=== PATIENT | female | born 1975 | race Caucasian/White ===

== ENCOUNTER 2016-10-19 01:24 | Emergency (ER) | payer MEDICAID ==
[~2016-10-19] VITALS: Ht 162.6 cm; Wt 68.5 kg
[~2016-10-19 01:24] MED LIST: ALBU8.5H3 INH; LORA10TA3 PO; PRED20TA PO
[2016-10-19 01:28] VITALS: Ht 162.6 cm; Wt 68.5 kg
[2016-10-19] MEDS ORDERED: LIDOCAINE 1% (MDV) 20 ML INJ SC ONE (03:00)
[2016-10-19] MEDS ORDERED: LANT3I SC (03:08)
[2016-10-19] MEDS ORDERED: SS SC (03:08)
[2016-10-19] MEDS ORDERED: ATOR10TA65 PO (03:08)
[2016-10-19] MEDS ORDERED: METF500T4 PO (03:08)
--- NOTE | 2016-10-19 03:09 | ERD ---
ER Documentation Chief Complaint Date/Time DATE: 10/19/16 TIME: 03:06 Chief Complaint Pain right under the breast x 14 days. dx w/ cyst on breast a year ago HPI 40-year-old female presents here in emergency department for complaints of pain redness and swelling right under the right breast area for 14 days now. Patient' s complain of pain sharp in 6/10 scale, is worse upon touching the area. Patient denies any fever or chills. She denies any nipple discharge or breast pain. Patient denies breast deformity. ROS All systems reviewed and are negative except as per history of present illness. Medications Home Meds Active Scripts Hydrocodone/Acetaminophen ([place] 5-325 Tablet) 1 Each Tablet, 1 TAB PO Q6H Y for SEVERE PAIN LEVEL 7-10, #20 TAB Prov:GEO LEÓN NP 10/19/16 Ibuprofen* (Motrin*) 600 Mg Tab, 600 MG PO Q6H Y for PAIN AND OR ELEVATED TEMP, #30 TAB Prov:GEO LEÓN NP 10/19/16 Cephalexin* (Keflex*) 500 Mg Capsule, 500 MG PO QID for 10 Days, CAP Prov:GEO LEÓN NP 10/19/16 Sulfamethoxazole/Trimethoprim* (Bactrim Ds* Tablet) 1 Each Tablet, 1 TAB PO BID , #20 TAB Prov:GEO LEÓN NP 10/19/16 Albuterol Sulfate* (Proair HFA*) 8.5 Gm Hfa.aer.ad, 2 PUFF INH Q4 for COUGH, #1 INHALER Prov:SHANNA SHEN MD 04/11/15 Loratadine* (Loratadine*) 10 Mg Tablet, 10 MG PO DAILY for NASAL CONGESTION, # 15 TAB Prov:SHANNA SHEN MD 04/11/15 Prednisone* (Prednisone*) 20 Mg Tab, 20 MG PO BID for 4 Days, TAB Prov:SHANNA SHEN MD 04/11/15 Reported Medications Insulin Glargine* (Lantus*) Unknown Strength Soln, SC BID, #1 VIAL 10/19/16 Atorvastatin Calcium (Atorvastatin Calcium) Unknown Strength Tablet, PO QHS, # 30 TAB 10/19/16 Insulin Human Regular (Novolin-R U-100) Unknown Strength Soln, SC AC BREAKFAST, EA 10/19/16 Metformin* (Glucophage*) Unknown Strength Tab, PO BID, #20 TAB 10/19/16 Allergies Allergies: Coded Allergies: No Known Allergy (Unverified , 10/19/16) PMhx/Soc History of Surgery: Yes (c-sec x 1, hysterectomy) Anesthesia Reaction: No Hx Neurological Disorder: No Hx Respiratory Disorders: No Hx Cardiac Disorders: No Hx Psychiatric Problems: No Hx Miscellaneous Medical Probl: Yes (DM) Hx Alcohol Use: No Hx Substance Use: No Hx Tobacco Use: No Smoking Status: Never smoker FmHx Family History: No coronary disease, No diabetes, No other Physical Exam Vitals Vital Signs Date Time Temp Pulse Resp B/P Pulse Ox O2 Delivery O2 Flow Rate FiO2 10/19/16 01:28 98.5 87 18 141/67 100 Physical Exam GENERAL: The patient is well developed and appropriate for usual state of health, in no apparent distress. CHEST: Clear to auscultation bilaterally. There are no rales, wheezes or rhonchi. HEART: Regular rate and rhythm. No murmurs, clicks, rubs or gallops. No S3 or S4. ABDOMEN: Soft, nontender and nondistended. Good bowel sounds. No rebound or guarding. No gross peritonitis. No gross organomegaly or masses. No Britt sign or McBurney point tenderness. BACK: No midline or flank tenderness. EXTREMITIES: Equal pulses bilaterally. There is no peripheral clubbing, cyanosis or edema. No focal swelling or erythema. Full range of motion. Grossly neurovascularly intact. NEURO: Alert and oriented. Cranial nerves 2-12 intact. Motor strength in all 4 extremities with 5/5 strength. Sensation grossly intact. Normal speech and gait. SKIN: Noted 2 cm diameter erythematous indurated fluctuant area on the skin right under the right breast area. There is no apparent rash or petechia. The skin is warm and dry. HEMATOLOGIC AND LYMPHATIC: There is no evidence of excessive bruising or lymphedema. No gross cervical, axillary, or inguinal lymphadenopathy. Results 24 hrs Current Medications Medications (Trade) Dose Ordered Sig/Sharon Route PRN Reason Start Time Stop Time Status Last Admin Dose Admin Lidocaine (Xylocaine 1% (Mdv) 20 ml) 5 ml ONCE ONCE SC 10/19/16 03:00 10/19/16 03:01 DC Acetaminophen/ Hydrocodone Bitart ([place] (10325)) 1 tab ONCE ONCE PO 10/19/16 04:00 10/19/16 04:01 Patient was given medication for pain here in emergency department, after treatment, patient verbalized feeling much better. Patient's pain is improved. Procedures/MDM Procedure Note: After obtaining informed consent, the wound was irrigated with 250 ml of normal saline and cleaned with diluted betadine. Using aseptic technique, 3 ml of 1% lidocaine was injected on the subcutaneous tissue of the abscess where the fluctuant area is at. After the anesthetic, a 2 cm incision was done in the middle of the fluctuant area of the abscess. Pustular discharge was drained from the abscess. The abscess wound was loosely packed with iodoform dressing. After the procedure, dry dressing was applied on the area. Patient tolerated procedure well. Medical Decision making: Patient symptoms is likely consistent with a soft tissue abscess. No symptoms of any breast abscess, no nipple discharge. No symptoms of sepsis at this time. Patient appears well seemed in no acute stable. Perfusion was given for Bactrim, Keflex, ibuprofen, [place], Zofran to follow-up in 2 days for recheck and wound dressing changes, patient was advised to return to emergency department for any worsening symptoms. disposition: Home. Stable. Departure Diagnosis: Primary Impression: Soft tissue abscess Condition: Stable Patient Instructions: Abscess, Incision And Drainage Additional Instructions: recheck 2 days, take antibiotics as prescribed GEO LEÓN NP Oct 19, 2016 03:09
[2016-10-19] MEDS ORDERED: SULF1TAB31 PO (03:57)
[2016-10-19] MEDS ORDERED: IBUP-1542 PO (03:57)
[2016-10-19] MEDS ORDERED: CEPH-443 PO (03:57)
[2016-10-19] MEDS ORDERED: HYDR-906 PO (03:57)
[2016-10-19] MEDS ORDERED: HYDROCODONE/APAP (10/325) TAB PO ONE (04:00)
== END 2016-10-19 04:19 | disposition home or self-care (01) ==
LOC: FTE 01:24
DX: N61.1 Abscess of the breast and nipple (principal); E11.9 Type 2 diabetes mellitus without complications; Z79.4 Long term (current) use of insulin; Z79.84 Long term (current) use of oral hypoglycemic drugs
CPT/HCPCS: 10061; Z7502; Z7610

== ENCOUNTER 2016-10-21 08:23 | Emergency (ER) | payer MEDICAID ==
[~2016-10-21] VITALS: Wt 66.4 kg
[~2016-10-21 08:23] MED LIST changes: +ATOR10TA65 PO; +CEPH-443 PO; +HYDR-906 PO; +IBUP-1542 PO; +LANT3I SC; +METF500T4 PO; +SS SC; +SULF1TAB31 PO
--- NOTE | 2016-10-21 09:10 | ERD ---
ER Documentation Chief Complaint Date/Time DATE: 10/21/16 TIME: 09:08 Chief Complaint wound recheck HPI This is a 40 year-old female presents emergency department today for wound check of an abscess that she had drained a couple of days ago. States she is currently taking her antibiotics. Denies any fevers or chills. ROS All systems reviewed and are negative except as per history of present illness. Medications Home Meds Active Scripts Hydrocodone/Acetaminophen ([place] 5-325 Tablet) 1 Each Tablet, 1 TAB PO Q6H Y for SEVERE PAIN LEVEL 7-10, #20 TAB Prov:GEO LEÓN NP 10/19/16 Ibuprofen* (Motrin*) 600 Mg Tab, 600 MG PO Q6H Y for PAIN AND OR ELEVATED TEMP, #30 TAB Prov:GEO LEÓN [employer] 10/19/16 Cephalexin* (Keflex*) 500 Mg Capsule, 500 MG PO QID for 10 Days, CAP Prov:GEO LEÓN NP 10/19/16 Sulfamethoxazole/Trimethoprim* (Bactrim Ds* Tablet) 1 Each Tablet, 1 TAB PO BID , #20 TAB Prov:GEO LEÓN NP 10/19/16 Albuterol Sulfate* (Proair HFA*) 8.5 Gm Hfa.aer.ad, 2 PUFF INH Q4 for COUGH, #1 INHALER Prov:SHANNA SHEN MD 04/11/15 Loratadine* (Loratadine*) 10 Mg Tablet, 10 MG PO DAILY for NASAL CONGESTION, # 15 TAB Prov:SHANNA SHEN MD 04/11/15 Prednisone* (Prednisone*) 20 Mg Tab, 20 MG PO BID for 4 Days, TAB Prov:SHANNA SHEN MD 04/11/15 Reported Medications Insulin Glargine* (Lantus*) Unknown Strength Soln, SC BID, #1 VIAL 10/19/16 Atorvastatin Calcium (Atorvastatin Calcium) Unknown Strength Tablet, PO QHS, # 30 TAB 10/19/16 Insulin Human Regular (Novolin-R U-100) Unknown Strength Soln, SC AC BREAKFAST, EA 10/19/16 Metformin* (Glucophage*) Unknown Strength Tab, PO BID, #20 TAB 10/19/16 Allergies Allergies: Coded Allergies: No Known Allergy (Unverified , 10/19/16) PMhx/Soc History of Surgery: Yes (c-sec x 1, hysterectomy) Anesthesia Reaction: No Hx Neurological Disorder: No Hx Respiratory Disorders: No Hx Cardiac Disorders: No Hx Psychiatric Problems: No Hx Miscellaneous Medical Probl: Yes (DM) Hx Alcohol Use: No Hx Substance Use: No Hx Tobacco Use: No Smoking Status: Never smoker Physical Exam Vitals Vital Signs Date Time Temp Pulse Resp B/P Pulse Ox O2 Delivery O2 Flow Rate FiO2 10/21/16 08:25 97.2 79 20 101/55 99 Physical Exam Const: No acute distress Head: Atraumatic Eyes: Normal Conjunctiva ENT: Normal External Ears, Nose and Mouth. Neck: Full range of motion..~ No meningismus. Resp: Clear to auscultation bilaterally Cardio: Regular rate and rhythm, no murmurs Abd: Soft, non tender, non distended. Normal bowel sounds Skin: Evidence of wound under right breast with packing in place. No erythema or warmth. Mild drainage. Neur: Awake and alert Psych: Normal Mood and Affect Procedures/MDM This is a 40-year-old female who presents the emergency department today for wound check of a abscess that she had drained 2 days ago. Upon review of patient's medical records patient had an abscess drained in her right breast 2 days ago. Patient is afebrile and otherwise well-appearing. I did remove the wound packing today that was in place. There is some mild serosanguineous drainage however no purulent drainage. Wound was redressed here in the emergency department. Low suspicion for sepsis, deep space infection. Patient instructed to continue taking her antibiotics as prescribed. At this time the patient is stable for discharge and outpatient management. Patient should follow up with their PCP in the next 1-2 days. They may return to the emergency department sooner for any persistent or worsening of symptoms. Patient understood and agreed with the plan. Departure Diagnosis: Primary Impression: Encounter for wound re-check Condition: Fair Patient Instructions: Wound Care Referrals: your PCP Additional Instructions: Llame al doctor MERLE y tatiana matthew SWETHA PARA DENTRO DE 1-2 MAURICE.Dgale a la secretaria que nosotros le instruimos hacer esta swetha.Avise o llame si hugo condicin se empeora antes de la swetha. Regresa aqui si peor o no mejor. Continue taking your antibiotics as prescribed Keep wound clean and dry ALINE ANGELES PA-C Oct 21, 2016 09:09
== END 2016-10-21 09:12 | disposition home or self-care (01) ==
LOC: FTE 08:23
DX: Z48.01 Encounter for change or removal of surgical wound dressing (principal); E11.9 Type 2 diabetes mellitus without complications; Z79.84 Long term (current) use of oral hypoglycemic drugs; Z79.4 Long term (current) use of insulin
CPT/HCPCS: 99281